=== PATIENT | female | born 1955 | race Caucasian/White ===

== ENCOUNTER 2018-08-16 15:08 | Emergency (ER) | payer OTHER ==
[~2018-08-16] VITALS: Ht 165.1 cm; Wt 140.6 kg
[2018-08-16 15:26] VITALS: Ht 165.1 cm; Wt 140.6 kg
[2018-08-16 18:05] VITALS: BP 159/83
== END 2018-08-16 18:05 | disposition home or self-care (01) ==
LOC: ED 15:08
DX: S20.212A Contusion of left front wall of thorax, initial encounter (principal); M25.512 Pain in left shoulder; I10 Essential (primary) hypertension; Z88.2 Allergy status to sulfonamides; V48.5XXA Car driver injured in noncollision transport accident in traffic accident, initial encounter; Y93.I9 Activity, other involving external motion; Y92.488 Other paved roadways as the place of occurrence of the external cause; Y99.8 Other external cause status
CPT/HCPCS: J1885; Q0092

== ENCOUNTER 2020-09-23 16:56 | Emergency (ER) | payer OTHER ==
[~2020-09-23] VITALS: Ht 165.1 cm; Wt 144.2 kg
[2020-09-23 17:08] VITALS: Ht 165.1 cm; Wt 144.2 kg
[2020-09-23] MEDS ORDERED: NOR10T PO (20:48)
[2020-09-23] MEDS ORDERED: VOLTAREN100 GM TOP (20:48)
[2020-09-23] MEDS ORDERED: MOT800 PO (20:48)
[2020-09-23 21:06] VITALS: BP 148/72
== END 2020-09-23 21:00 | disposition home or self-care (01) ==
LOC: ED 16:56
DX: M47.9 Spondylosis, unspecified (principal); I10 Essential (primary) hypertension; Z88.2 Allergy status to sulfonamides
CPT/HCPCS: J1885